=== PATIENT | female | born 1970 | race Caucasian/White ===

== ENCOUNTER → 2018-06-28 | Outpatient (CLI) | payer OTHER ==
--- NOTE | 2018-06-28 16:36 | Diagnostic Imaging Report ---
EXAM: Thyroid Ultrasound INDICATION: ^THYROID NODULE COMPARISON: None TECHNIQUE: Transverse and sagittal images were obtained of the thyroid gland. FINDINGS: Thyroid gland: Size: Right lobe: 4.5 x 1.2 x 1.7 cm, Normal in size Left lobe: 1.6 x 4.4 x 1.1 cm, Normal in size Isthmus: 0.2 cm, Normal in size Appearance: Homogeneous echotexture without increased vascularity Masses/Nodules: Right lobe: 0.3 x 0.2 x 2.2 cm solid (2 pts) nodule in the superior pole with smooth margin (0 pts), pkkzl-hitw-uynu (0 pts), hypoechoic (2 pts), and no calcifications (0 pts). TR4a (<1.0 cm): No follow-up. 0.5 x 0.4 x 0.6 cm solid (2 pts) nodule in the medial inferior pole with smooth margin (0 pts), zrccz-ftrt-dibv (0 pts), hypoechoic (2 pts), and no calcifications (0 pts). TR4a (<1.0 cm): No follow-up. Left lobe: 0.5 x 0.3 x 0.3 cm solid (2 pts) nodule in the interpolar region with smooth margin (0 pts), ozlfz-akbl-jylm (0 pts), hypoechoic (2 pts), and no calcifications (0 pts). TR4a (<1.0 cm): No follow-up. 0.5 x 0.4 x 0.7 cm solid (2 pts) nodule in the medial midpole with smooth margin (0 pts), nlzbi-jott-nvfh (0 pts), hypoechoic (2 pts), and macrocalcifications (1 pt). TR4a (<1.0 cm): No follow-up. 0.4 x 0.3 x 0.3 cm solid (2 pts) nodule in the inferior pole with smooth margin (0 pts), cscyu-klus-vpld (0 pts), hypoechoic (2 pts), and no calcifications (0 pts). TR4a (<1.0 cm): No follow-up. Parathyroid: No focal parathyroid masses. IMPRESSION: Bilateral subcentimeter thyroid nodules, none meets the criteria for fine-needle aspiration. TI-RADS Lexicon: TR1, Benign: No FNA TR2, Not Suspicious: No FNA. TR3a (<1.5 cm): No follow-up. TR3b (1.5-2.5 cm), Mildly Suspicious: Follow at 1, 3, 5 years. TR3c (>2.5 cm), Mildly Suspicious: FNA. TR4a (<1.0 cm): No follow-up. TR4b (1.0-1.5 cm), Moderately Suspicious: Follow at 1, 2, 3, 5 years. TR4c (>1.5 cm), Moderately Suspicious: FNA. TR5a (<0.5 cm): No follow-up. TR5b (0.5-1.0 cm), Highly Suspicious: Follow at 1, 2, 3, 4, 5 years. TR5c (>1.0 cm), Highly Suspicious: FNA. *Rebiopsy if new suspicious features *No recommendation at this time for significant interval growth. Nodule Characteristics: * Benign features: cystic, hyperechoic, comet-tail artifact, complete halo * Minor suspicious features: solid, hypoechoic, other calcifications * Major suspicious features: microcalcifications, marked hypoechoic (less than strap muscle), suspicious lymph nodes, taller than wide, lobulated or ill-defined margins. Literature: ACR Thyroid Imaging, Reporting and Data System (TI-RADS): White Paper of the ACR TI-RADS Committee. J Am Joy Radiol 2017. Signed by: Dr. Demetrius Florentino MD on 06/28/2018 4:33 PM
== END ==
LOC: US 15:13
PROVIDERS: ATTEND Internal Medicine
DX: E04.1 Nontoxic single thyroid nodule (principal)
CPT/HCPCS: 76536

== ENCOUNTER → 2019-07-22 | Outpatient (CLI) | payer OTHER ==
--- NOTE | 2019-07-23 09:06 | Diagnostic Imaging Report ---
EXAM: Thyroid Ultrasound INDICATION: ^[id number] ^[id number] ^THYROID NODULE COMPARISON: Thyroid ultrasound of 06/28/2018 TECHNIQUE: Transverse and sagittal images were obtained of the thyroid gland. FINDINGS: Thyroid gland: Size: Right lobe: 3.6 x 1.3 x 1.9 cm, Normal in size Left lobe: 4.7 x 1.2 x 1.6 cm, Normal in size Isthmus: 0.2 cm, Normal in size Appearance: Homogeneous echotexture without increased vascularity Masses/Nodules: Right lobe: 0.2 x 0.1 x 0.2 cm cystic (0 pts) nodule in the superior pole with smooth margin (0 pts), ljvdw-xwht-mkqh (0 pts), anechoic (0 pts), and no calcifications (0 pts). TR1, Benign: No FNA 0.5 x 0.4 x 0.5 cm solid (2 pts) nodule in the medial inferior pole with smooth margin (0 pts), hdzqr-shau-imck (0 pts), hypoechoic (2 pts), and no calcifications (0 pts). TR4a (<1.0 cm): No follow-up. Left lobe: 0.6 x 0.3 x 0.6 cm solid (2 pts) nodule in the superior pole with smooth margin (0 pts), xmqru-zgao-thed (0 pts), hypoechoic (2 pts), and macrocalcifications (1 pt). TR4a (<1.0 cm): No follow-up. 0.4 x 0.3 x 0.3 cm solid (2 pts) nodule in the interpolar region with smooth margin (0 pts), giapi-wuxi-sxos (0 pts), hypoechoic (2 pts), and no calcifications (0 pts). TR4a (<1.0 cm): No follow-up. 0.2 x 0.1 x 0.2 cm spongiform (0 pts) nodule in the interpolar region with smooth margin (0 pts), vayax-nyrj-dcat (0 pts), hypoechoic (2 pts), and no calcifications (0 pts). TR2, Not Suspicious: No FNA. Parathyroid: No focal parathyroid masses. IMPRESSION: Bilateral subcentimeter thyroid nodules, none of which meets criteria for further imaging followup or FNA. No further imaging follow-up of these nodules is necessary. TI-RADS Lexicon: TR1, Benign: No FNA TR2, Not Suspicious: No FNA. TR3a (<1.5 cm): No follow-up. TR3b (1.5-2.5 cm), Mildly Suspicious: Follow at 1, 3, 5 years. TR3c (>2.5 cm), Mildly Suspicious: FNA. TR4a (<1.0 cm): No follow-up. TR4b (1.0-1.5 cm), Moderately Suspicious: Follow at 1, 2, 3, 5 years. TR4c (>1.5 cm), Moderately Suspicious: FNA. TR5a (<0.5 cm): No follow-up. TR5b (0.5-1.0 cm), Highly Suspicious: Follow at 1, 2, 3, 4, 5 years. TR5c (>1.0 cm), Highly Suspicious: FNA. *Rebiopsy if new suspicious features *No recommendation at this time for significant interval growth. Nodule Characteristics: * Benign features: cystic, hyperechoic, comet-tail artifact, complete halo * Minor suspicious features: solid, hypoechoic, other calcifications * Major suspicious features: microcalcifications, marked hypoechoic (less than strap muscle), suspicious lymph nodes, taller than wide, lobulated or ill-defined margins. Signed by: Juvenal Ryan MD on 07/23/2019 9:02 AM
== END ==
LOC: US 13:17
PROVIDERS: ATTEND Internal Medicine
DX: E04.1 Nontoxic single thyroid nodule (principal)
CPT/HCPCS: 76536

== ENCOUNTER → 2020-09-08 | Outpatient (CLI) | payer BC, OTHER | LOC: US 16:08 | PROVIDERS: ATTEND Internal Medicine | DX: E04.1 Nontoxic single thyroid nodule (principal) | CPT/HCPCS: 76536 ==

== ENCOUNTER → 2022-01-21 | Outpatient (CLI) | payer BC, OTHER | LOC: US 13:31 | PROVIDERS: ATTEND Internal Medicine | DX: E04.2 Nontoxic multinodular goiter (principal) | CPT/HCPCS: 76536 ==

== ENCOUNTER → 2025-02-04 | Outpatient (REF) | payer OTHER | LOC: US 09:29 | PROVIDERS: ATTEND Internal Medicine | DX: E04.2 Nontoxic multinodular goiter (principal) | CPT/HCPCS: 76536 ==